=== PATIENT | male | born 1985 | race African-American/Black ===

== ENCOUNTER 2017-05-18 19:22 | Emergency (ER) | payer SELFPAY ==
[~2017-05-18] VITALS: Ht 162.6 cm; Wt 74.8 kg
[2017-05-18 19:35] VITALS: BP 149/88
== END 2017-05-18 20:45 | disposition left against medical advice (07) ==
LOC: ER 19:22
DX: R50.9 Fever, unspecified (principal); R51 Headache; Z53.21 Procedure and treatment not carried out due to patient leaving prior to being seen by health care provider

== ENCOUNTER 2018-04-05 17:15 | Emergency (ER) | payer SELFPAY ==
[~2018-04-05] VITALS: Ht 157.5 cm; Wt 72.6 kg
[2018-04-05 17:36] VITALS: BP 139/60
== END 2018-04-05 18:39 | disposition left against medical advice (07) ==
LOC: ER 17:23
DX: Z57.5 Occupational exposure to toxic agents in other industries (principal); Z53.21 Procedure and treatment not carried out due to patient leaving prior to being seen by health care provider